=== PATIENT | female | born 1940 | race Two or more races ===

== ENCOUNTER 2018-01-09 10:22 | Emergency (ER) | payer OTHER ==
[~2018-01-09] VITALS: Ht 154.9 cm; Wt 77.1 kg
[~2018-01-09 10:22] MED LIST: AZITHROMYCIN250 MG PO; CARDIZEM30 MG; COUMADIN5 MG; METOPROLOL SUCC25 MG; TESSALON PERLE100 M1 PO; TUSSI PRES-B L120 M1 PO; ZETIA10 MG; ZOCOR20 MG
[2018-01-09] MEDS ORDERED: SYNTHROID75 MCG (10:42)
== END 2018-01-09 12:23 | disposition home or self-care (01) ==
LOC: ER 10:22
DX: L03.012 Cellulitis of left finger (principal); B95.7 Other staphylococcus as the cause of diseases classified elsewhere; B96.89 Other specified bacterial agents as the cause of diseases classified elsewhere

== ENCOUNTER 2018-07-27 09:55 | Outpatient (CLI) | payer OTHER ==
[~2018-07-27 09:55] MED LIST changes: +SYNTHROID75 MCG
== END 2018-07-27 10:02 | disposition home or self-care (01) ==
LOC: NUCLEAR 09:55
DX: I27.29 Other secondary pulmonary hypertension (principal); I50.32 Chronic diastolic (congestive) heart failure; I48.2 Chronic atrial fibrillation

== ENCOUNTER 2019-11-23 10:10 | Outpatient (CLI) | payer OTHER | END 2019-11-23 11:49 | disposition home or self-care (01) | LOC: NUCLEAR 10:10 | DX: I10 Essential (primary) hypertension (principal); I27.20 Pulmonary hypertension, unspecified; G47.33 Obstructive sleep apnea (adult) (pediatric); I48.11 Longstanding persistent atrial fibrillation; M81.0 Age-related osteoporosis without current pathological fracture; Z13.820 Encounter for screening for osteoporosis ==

== ENCOUNTER 2022-07-08 18:05 | Emergency (ER) | payer OTHER ==
[~2022-07-08] VITALS: Ht 152.4 cm; Wt 74.8 kg
[2022-07-08] MEDS ORDERED: LEVOTHYROXINE25 MCG PO (18:20)
[2022-07-08] MEDS ORDERED: LANOXIN125 MCG PO (18:20)
[2022-07-08] MEDS ORDERED: FENOFIBRATE150 MG PO (18:20)
[2022-07-08] MEDS ORDERED: XARELTO20 MG PO (18:21)
== END 2022-07-08 22:25 | disposition home or self-care (01) ==
LOC: ER 18:05
DX: U07.1 COVID-19 (principal); R07.0 Pain in throat; L03.012 Cellulitis of left finger; Z88.8 Allergy status to other drugs, medicaments and biological substances